=== PATIENT | female | born 1990 | race American Indian/Alaskan Native ===

== ENCOUNTER 2016-07-21 19:25 | Emergency (ER) | payer MEDICAID ==
[2016-07-21] MEDS ORDERED: TYLENOL ONE (21:02)
[2016-07-21] MEDS: TYLENOL PO ONE (21:09)
[2016-07-22] MEDS ORDERED: MOTRIN ONE (02:42)
--- NOTE | 2016-07-22 02:46 | Emergency Department Report ---
HPI - General Chief Complaint: Fever Time Seen by Provider: 07/22/16 02:42 - HPI HPI: Patient here complaining of fever, sore throat, painful swallowing, earache and headache that started yesterday. Denies any nausea vomiting or diarrhea. Denies any difficulties with breathing. Denies any difficulties with drinking. Denies drooling. Denie Chest pain or shortness of breath. ED Past Medical Hx - Past Medical History Previous Medical History?: Yes Hx Hypertension: Yes (during ) Hx Heart Attack/AMI: No Hx Liver Disease: No Hx Renal Disease: No Hx Sickle Cell Disease: No Hx Seizures: No Hx Asthma: No Additional medical history: MVP - Surgical History Past Surgical History?: Yes Additional Surgical History: - Family History Family history: no significant - Social History Smoking Status: Never Smoker Substance Use Type: None - Medications Home Medications: Home Medications Medication Instructions Recorded Confirmed Last Taken Type HYDROcodone/APAP 5-325 [[place] 1 each PO Q6HR PRN #20 tablet 04/11/16 Unknown Rx 5/325] Ibuprofen [Motrin] 600 mg PO Q8H PRN #15 tablet 07/22/16 Unknown Rx Penicillin Vk [Veetids TAB] 500 mg PO Q8H #60 tablet 07/22/16 Unknown Rx ED Review of Systems ROS: Stated complaint: SWOLLEN TONSILS, EAR PAIN, SORE THROAT Other details as noted in HPI Comment: All other systems reviewed and negative Constitutional: chills, fever Eyes: denies: eye discharge ENT: ear pain, throat pain. denies: dental pain, congestion Respiratory: no symptoms reported Cardiovascular: denies: chest pain, palpitations, edema, syncope Gastrointestinal: denies: abdominal pain, nausea, vomiting, diarrhea Genitourinary: denies: urgency, dysuria, frequency, hematuria, discharge Skin: denies: rash Neurological: headache. denies: weakness, numbness, paresthesias, confusion, abnormal gait, vertigo Physical Exam - Physical Exam Vital Signs: Vital Signs 07/21/16 21:04 Temperature 101.4 F H Pulse Rate 126 H Respiratory 18 Rate Blood Pressure 153/86 O2 Sat by Pulse 97 Oximetry General: 25-year-old female well-nourished well-developed in no acute distress. Physical Exam: Head: Normocephalic atraumatic Mouth: Moist, positive pharyngeal erythema/tonsillar erythema and enlargement . Uvula is midline and oral airway is patent. No facial swelling. No peritonsillar abscesses. Positive pharyngeal exudate. Nose: Normal mucosa .Maxillary and frontal sinuses nontender to palpate Neck: Supple, no C-spine tenderness, no tracheal deviation. Nontender to palpate. positive cervical adenopathy Ears: Bilateral TMs pearly lee. bilateral EAC without any redness swelling or drainage. Abdomen: Soft, nontender to palpate in all quadrants, normal bowel sounds in all quadrant and negative CVA tenderness bilaterally. Eyes: Bilateral pupils equal and reactive to light, bilateral EOM intact. Bilateral sclera and conjunctiva without injection. Normal accommodation. Lungs: Clear to auscultate bilaterally no rhonchi wheezes or rales. Normal work of breathing extremity; No CCE. +2 pulses. No neurovascular compromise Cardiovascular: S1-S2, tachycardic at 126 ,regular rhythm. No murmurs. Skin: clean Dry and intact no rash no lesions Psych: Normal mood and behavior ED Course Vital Signs 07/21/16 21:04 Temperature 101.4 F H Pulse Rate 126 H Respiratory 18 Rate Blood Pressure 153/86 O2 Sat by Pulse 97 Oximetry Vital Signs 07/21/16 07/22/16 21:04 04:05 Temperature 101.4 F H 98.4 F Pulse Rate 126 H 104 H Respiratory 18 16 Rate Blood Pressure 153/86 Blood Pressure 127/78 [Left] O2 Sat by Pulse 97 98 Oximetry - Reevaluation(s) Reevaluation #1: 07/22/16 03:54 Patient given Penicillin VK 500 mg in emergency room, she was given Tylenol in triage area. Patient was given additional Motrin 800 mg in emergency room. She was also given Decadron 60 mg by mouth for swelling to tonsils. ED Medical Decision Making - Lab Data Strep positive - Medical Decision Making ED course: Patient with strep pharyngitis, fever. Patient was orally hydrated in emergency room which she tolerated well. She was given Tylenol 650 mg by mouth in triage and additional Motrin 800 mg in emergency room. Given Decadron 60 mg for tonsillar swelling and Penicillin VK initial dose of 500 mg in emergency room. Shesays she felt better. Patient given diagnosis and discharge instruction and she voiced understanding. Critical care attestation.: If time is entered above; I have spent that time in minutes in the direct care of this critically ill patient, excluding procedure time. ED Disposition Clinical Impression: Pharyngitis, streptococcal, Fever in adult, Tonsillar enlargement Disposition: DISCHARGED TO HOME OR SELFCARE Is pt being admited?: No Does the pt Need Aspirin: No Condition: Stable Instructions: Strep Throat (ED), Fever in Adults (ED), Earache (ED) Additional Instructions: Please take antibiotic as prescribed Take Motrin for similar episode. follow up Primary care physician in 3-5 days and if he didn't have one to follow-up with [facility] Prescriptions: Ibuprofen [Motrin] 600 mg PO Q8H PRN #15 tablet PRN Reason: Pain Penicillin Vk [Veetids TAB] 500 mg PO Q8H #60 tablet Referrals: PRIMARY CARE,MD [Primary Care Provider] - 2-3 Days [facility] [Outside] - 2-3 Days Forms: Work/School Release Form(ED)
[2016-07-22] MEDS: MOTRIN PO ONE (02:55)
[2016-07-22] MEDS: DELTASONE PO ONE (02:55)
[2016-07-22] MEDS: VEETIDS PO ONE (03:14)
[2016-07-22 04:06] VITALS: BP 127/78
== END 2016-07-22 04:15 | disposition home or self-care (01) ==
LOC: ED 19:25
DX: J02.0 Streptococcal pharyngitis (principal); J35.1 Hypertrophy of tonsils; I10 Essential (primary) hypertension
CPT/HCPCS: 87430; 99282; J7512

== ENCOUNTER 2019-01-24 08:35 | Emergency (ER) | payer OTHER ==
[2019-01-24] MEDS ORDERED: NORCO 5/325 PO ONE (08:53)
--- NOTE | 2019-01-24 08:59 | Emergency Department Report ---
ED ENT HPI - General Chief complaint: Dental/Oral Stated complaint: RT SIDE MOUTH SWELLING/PAIN Time Seen by Provider: 01/24/19 08:44 Source: patient Mode of arrival: Ambulatory Limitations: No Limitations - History of Present Illness Initial comments: The patient is a 28-year-old female who presents to ED complaining of pain in the right upper side of her back to 2 weeks. Patient states 2 weeks ago she went to the dentist and was given prescription of amoxicillin and ibuprofen. She states she finished a dose but pain did not resolve. The pain is exacerbated by eating on that side of the mouth. Patient states the pain is alleviated initially with pain medication but comes back. Patient states that it radiates towards her right side of ear and throat. Patient describes a as a throbbing, pressure-like sensation. Patient states otherwise well and has no other complaints. Patient has had no fevers and no chills. No chest pain, no shortness of breath. No abdominal pain. No shortness of breath or recent trauma to the face. MD complaint: tooth pain - Related Data Previous Rx's Medication Instructions Recorded Last Taken Type HYDROcodone/APAP 5-325 [[place] 1 each PO Q6HR PRN #20 tablet 04/11/16 Unknown Rx 5/325] Ibuprofen [Motrin] 600 mg PO Q8H PRN #15 tablet 07/22/16 Unknown Rx Penicillin Vk [Veetids TAB] 500 mg PO Q8H #60 tablet 07/22/16 Unknown Rx Naproxen [Naprosyn] 500 mg PO BID PRN #20 tablet 01/15/18 Unknown Rx Acetaminophen/Codeine [Tylenol 1 tab PO Q6H #10 tab 01/24/19 Unknown Rx /Codeine # 3 tab] Ibuprofen [Motrin] 800 mg PO Q8HR #30 tablet 01/24/19 Unknown Rx Allergies Allergy/AdvReac Type Severity Reaction Status Date / Time No Known Allergies Allergy Verified 04/02/16 13:22 ED Dental HPI - General Chief complaint: Dental/Oral Stated complaint: RT SIDE MOUTH SWELLING/PAIN Time Seen by Provider: 01/24/19 08:44 Source: patient Mode of arrival: Ambulatory Limitations: No Limitations - Related Data Previous Rx's Medication Instructions Recorded Last Taken Type HYDROcodone/APAP 5-325 [[place] 1 each PO Q6HR PRN #20 tablet 01/06/17 Unknown Rx 5/325] Ibuprofen [Motrin] 600 mg PO Q8H PRN #15 tablet 07/22/16 Unknown Rx Penicillin Vk [Veetids TAB] 500 mg PO Q8H #60 tablet 07/22/16 Unknown Rx Naproxen [Naprosyn] 500 mg PO BID PRN #20 tablet 01/15/18 Unknown Rx Acetaminophen/Codeine [Tylenol 1 tab PO Q6H #10 tab 01/24/19 Unknown Rx /Codeine # 3 tab] Ibuprofen [Motrin] 800 mg PO Q8HR #30 tablet 01/24/19 Unknown Rx Allergies Allergy/AdvReac Type Severity Reaction Status Date / Time No Known Allergies Allergy Verified 04/02/16 13:22 ED Review of Systems ROS: Stated complaint: RT SIDE MOUTH SWELLING/PAIN Other details as noted in HPI Comment: All other systems reviewed and negative ED Past Medical Hx - Past Medical History Previous Medical History?: Yes Hx Hypertension: Yes (during ) Hx Heart Attack/AMI: No Hx Liver Disease: No Hx Renal Disease: No Hx Sickle Cell Disease: No Hx Seizures: No Hx Asthma: No Additional medical history: MVP - Surgical History Past Surgical History?: Yes Additional Surgical History: x 2. tubal ligation - Social History Smoking Status: Never Smoker Substance Use Type: None - Medications Home Medications: Home Medications Medication Instructions Recorded Confirmed Last Taken Type HYDROcodone/APAP 5-325 [[place] 1 each PO Q6HR PRN #20 tablet 04/11/16 Unknown Rx 5/325] Ibuprofen [Motrin] 600 mg PO Q8H PRN #15 tablet 07/22/16 Unknown Rx Penicillin Vk [Veetids TAB] 500 mg PO Q8H #60 tablet 07/22/16 Unknown Rx Naproxen [Naprosyn] 500 mg PO BID PRN #20 tablet 01/15/18 Unknown Rx Acetaminophen/Codeine [Tylenol 1 tab PO Q6H #10 tab 01/24/19 Unknown Rx /Codeine # 3 tab] Ibuprofen [Motrin] 800 mg PO Q8HR #30 tablet 01/24/19 Unknown Rx ED Physical Exam - General Limitations: No Limitations General appearance: alert, in no apparent distress - Head Head exam: Present: atraumatic, normocephalic - Eye Eye exam: Present: normal appearance - ENT ENT exam: Present: mucous membranes moist - Expanded ENT Exam Expanded Ear exam: Present: normal external inspection Mouth exam: Absent: drooling, trismus, muffled voice Teeth exam: Present: gingival enlargement, other (gingival tenderness over wisdom tooth #1. Nonfluctuant, nonerythematous). Absent: fractured tooth #, dental tenderness # Throat exam: Positive: normal inspection. Negative: tonsillomegaly, tonsillar exudate - Neck Neck exam: Present: normal inspection, full ROM. Absent: tenderness, lymphadenopathy - Respiratory Respiratory exam: Present: normal lung sounds bilaterally. Absent: respiratory distress - Cardiovascular Cardiovascular Exam: Present: regular rate, normal rhythm. Absent: systolic murmur, diastolic murmur, rubs, gallop - GI/Abdominal GI/Abdominal exam: Present: soft, normal bowel sounds - Extremities Exam Extremities exam: Present: normal inspection - Back Exam Back exam: Present: normal inspection - Neurological Exam Neurological exam: Present: alert, oriented X3 - Psychiatric Psychiatric exam: Present: normal affect, normal mood - Skin Skin exam: Present: warm, dry, intact, normal color. Absent: rash ED Course Vital Signs 01/24/19 08:39 Temperature 98.3 F Pulse Rate 101 H Respiratory 18 Rate Blood Pressure 153/81 O2 Sat by Pulse 98 Oximetry ED Medical Decision Making - Medical Decision Making 28-year-old female who presents with right-sided Facial pain secondary to to inflammation of the wisdom tooth ED course: Patient received pain medication Disinfect the patient finished 10 day course of antibiotic and ibuprofen with no relief I discussed the patient to follow up with the dentist I discussed the patient that she may need surgical extraction of the wisdom tooth and wanted to follow-up with dentist. 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 At this point, patient will be discharged home on some antibiotics and pain trial, She is agreed to Follow up with the Dental Clinic Vital signs are normal patient is in no acute distress. Pt had an effect uneventful ED stay Critical care attestation.: If time is entered above; I have spent that time in minutes in the direct care of this critically ill patient, excluding procedure time. ED Disposition Clinical Impression: Pain, dental Disposition: DC-01 TO HOME OR SELFCARE Is pt being admited?: No Does the pt Need Aspirin: No Condition: Stable Instructions: Toothache (ED) Additional Instructions: Make sure to follow up with the dentist as discussed. Take all your medications as you've been prescribed. If you have any worsening symptoms or develop new symptoms please return to ED immediately. Prescriptions: Ibuprofen [Motrin] 800 mg PO Q8HR #30 tablet Acetaminophen/Codeine [Tylenol /Codeine # 3 tab] 1 tab PO Q6H #10 tab Referrals: CASSI DUNN NP-C [Primary Care Provider] - 3-5 Days [facility] [Outside] - 3-5 Days Forms: Accompanied Note, Work/School Release Form(ED) Time of Disposition: 09:35
[2019-01-24 10:16] VITALS: BP 150/81
== END 2019-01-24 10:14 | disposition home or self-care (01) ==
LOC: ED 08:35
DX: K08.89 Other specified disorders of teeth and supporting structures (principal); I10 Essential (primary) hypertension; Z79.899 Other long term (current) drug therapy; Z98.51 Tubal ligation status
CPT/HCPCS: 99282

== ENCOUNTER 2019-12-19 22:16 | Emergency (ER) | payer OTHER ==
--- NOTE | 2019-12-19 23:10 | XRay Report ---
LEFT FOOT 3 VIEWS INDICATION / CLINICAL INFORMATION: injury COMPARISON: None available. FINDINGS: BONES / JOINT(S): No acute fracture or subluxation. No significant arthritis. Minimal calcaneal spurr ing. SOFT TISSUES: No significant abnormality. ADDITIONAL FINDINGS: None. Signer Name: Daniel Cruz MD Signed: 12/19/2019 11:06 PM Workstation Name: [id number]
[2019-12-20] MEDS ORDERED: IBUPROFEN 800 MG TAB PO ONE (02:29)
--- NOTE | 2019-12-20 02:33 | Emergency Department Report ---
HPI - General Chief Complaint: Extremity Injury, Lower Time Seen by Provider: 12/20/19 02:28 - HPI HPI: This is a 29-year-old female presents to the emergency department with a complaint of pain to the fourth toe of her left foot, as well as some associated bruising and swelling, after she accidentally kicked an ottoman this morning. She has not taken anything for symptoms prior to presentation. No past medical history. ED Past Medical Hx - Past Medical History Hx Hypertension: Yes (during ) Hx Heart Attack/AMI: No Hx Liver Disease: No Hx Renal Disease: No Hx Sickle Cell Disease: No Hx Seizures: No Hx Asthma: No Additional medical history: MVP - Surgical History Additional Surgical History: x 2. tubal ligation - Social History Smoking Status: Never Smoker Substance Use Type: Alcohol - Medications Home Medications: Home Medications Medication Instructions Recorded Confirmed Last Taken Type HYDROcodone/APAP 5-325 [[place] 1 each PO Q6HR PRN #20 tablet 04/11/16 Unknown Rx 5/325] Ibuprofen [Motrin] 600 mg PO Q8H PRN #15 tablet 07/22/16 Unknown Rx Penicillin Vk [Veetids TAB] 500 mg PO Q8H #60 tablet 07/22/16 Unknown Rx Naproxen [Naprosyn] 500 mg PO BID PRN #20 tablet 01/15/18 Unknown Rx Acetaminophen/Codeine [Tylenol 1 tab PO Q6H #10 tab 01/24/19 Unknown Rx /Codeine # 3 tab] Ibuprofen [Motrin 800 MG tab] 800 mg PO Q8HR PRN #20 tablet 12/20/19 Unknown Rx ED Review of Systems ROS: Stated complaint: LF FOOT INJURY Other details as noted in HPI Comment: All other systems reviewed and negative Constitutional: denies: chills, fever Musculoskeletal: joint swelling, arthralgia Skin: change in color (echymoses). denies: rash Neurological: denies: numbness, paresthesias Physical Exam - Physical Exam Vital Signs: Vital Signs 12/19/19 22:35 Temperature 98.3 F Pulse Rate 85 Respiratory 15 Rate Blood Pressure 140/66 O2 Sat by Pulse 100 Oximetry Physical Exam: GENERAL: The patient is well-developed well-nourished. HENT: Normocephalic. Atraumatic. Patient has moist mucous membranes. EYES: Extraocular motions are intact. SKIN: Skin is warm and dry. There is some ecchymosis to the left fourth toe and the distal foot at the base of the fourth and fifth toes. NEURO: The patient is awake, alert, and oriented. The patient is cooperative. The patient has no focal neurologic deficits. Normal speech. MUSCULOSKELETAL: Tenderness palpation to the left fourth toe. Capillary refill less than 2 seconds. ED Course Vital Signs 12/19/19 22:35 Temperature 98.3 F Pulse Rate 85 Respiratory 15 Rate Blood Pressure 140/66 O2 Sat by Pulse 100 Oximetry ED Medical Decision Making - Radiology Data Radiology results: image reviewed interpreted by me: X-ray of the left foot and toes does not show any fracture, dislocation, or any acute process. - Medical Decision Making X-ray does not show any fracture, dislocation or any acute process. She is neurovascularly intact. She has been given a referral for podiatry. Critical Care Time: No Critical care attestation.: If time is entered above; I have spent that time in minutes in the direct care of this critically ill patient, excluding procedure time. ED Disposition Clinical Impression: Toe contusion Qualifiers: Encounter type: initial encounter Toe: lesser toe Damage to nail status: without damage Laterality: left Qualified Code(s): S90.122A - Contusion of left lesser toe(s) without damage to nail, initial encounter Foot contusion Qualifiers: Encounter type: initial encounter Laterality: left Qualified Code(s): S90.32XA - Contusion of left foot, initial encounter Disposition: -01 TO HOME OR SELFCARE Is pt being admited?: No Condition: Stable Instructions: Foot Contusion (ED) Additional Instructions: Please follow-up with your primary care physician in the next few days. I have also given you a referral for a local belt back operator, Dr. Saldivar. Return to the emergency department with any worsening of your symptoms or with any acute distress. Prescriptions: Ibuprofen [Motrin 800 MG tab] 800 mg PO Q8HR PRN #20 tablet PRN Reason: Pain , Severe (7-10) Referrals: CASSI DUNN NP-C [Primary Care Provider] - 2-3 Days KELSEY SALDIVAR DPM [Staff Physician] - 2-3 Days Time of Disposition: 02:33
[2019-12-20 02:55] VITALS: BP 134/62
== END 2019-12-20 02:45 | disposition home or self-care (01) ==
LOC: ED 22:16
DX: S90.122A Contusion of left lesser toe(s) without damage to nail, initial encounter (principal); S90.32XA Contusion of left foot, initial encounter; I10 Essential (primary) hypertension; Z98.51 Tubal ligation status; Z98.890 Other specified postprocedural states; Z79.899 Other long term (current) drug therapy

== ENCOUNTER 2020-08-16 17:12 | Emergency (ER) | payer OTHER | END 2020-08-16 20:20 | disposition home or self-care (01) | LOC: ED 17:12 | CPT/HCPCS: 71046; 99283 ==

== ENCOUNTER 2021-03-03 22:51 | Emergency (ER) | payer OTHER ==
[2021-03-03 22:54] VITALS: BP 150/93
== END 2021-03-04 00:30 | disposition left against medical advice (07) ==
LOC: ED 22:51
DX: J02.9 Acute pharyngitis, unspecified (principal); Z53.21 Procedure and treatment not carried out due to patient leaving prior to being seen by health care provider

== ENCOUNTER 2021-08-28 14:12 | Emergency (ER) | payer OTHER ==
[2021-08-28] MEDS ORDERED: ACETAMINOPHEN 500 MG TAB PO ONE (20:40)
[2021-08-28] MEDS ORDERED: IBUPROFEN 600 MG TAB PO ONE (20:40)
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
[2021-08-28 21:45] VITALS: BP 121/86
== END 2021-08-28 21:44 | disposition home or self-care (01) ==
LOC: ED 14:12
DX: S39.012A Strain of muscle, fascia and tendon of lower back, initial encounter (principal); M62.830 Muscle spasm of back; Z98.51 Tubal ligation status; Z79.899 Other long term (current) drug therapy; V89.2XXA Person injured in unspecified motor-vehicle accident, traffic, initial encounter; Y93.89 Activity, other specified; Y92.488 Other paved roadways as the place of occurrence of the external cause; Y99.8 Other external cause status
CPT/HCPCS: 72100; 99283